=== PATIENT | male | born 1970 | race Caucasian/White ===

== ENCOUNTER 2017-06-29 02:47 | Emergency (ER) | payer MEDICAID ==
[~2017-06-29] VITALS: Ht 154.9 cm; Wt 75.0 kg
[~2017-06-29 02:47] MED LIST: ALBUTEROL
[2017-06-29] MEDS ORDERED: METHYLPREDNISOLONE SOD SUCC 125 MG/2 ML VIAL IV STA (03:15)
[2017-06-29] MEDS ORDERED: IPRATROPIUM/ALBUTEROL 0.5-3(2.5)MG/3ML NEB HHN ONE (03:15)
[2017-06-29] MEDS ORDERED: MAGNESIUM 2 G PREMIX 50 ML IV ONE (03:15)
[2017-06-29 05:46] VITALS: BP 118/67
== END 2017-06-29 05:53 | disposition home or self-care (01) ==
LOC: ER 02:47
DX: J45.901 Unspecified asthma with (acute) exacerbation (principal)
CPT/HCPCS: 71010; 94640; 96365; 96375; 99284; J2930; J3475; Z7610; J7620

== ENCOUNTER 2017-08-07 07:46 | Emergency (ER) | payer MEDICAID ==
[~2017-08-07] VITALS: Ht 154.9 cm; Wt 73.0 kg
[2017-08-07] MEDS ORDERED: IPRATROPIUM BROMIDE (0.02%) 0.5MG/2.5ML NEB HHN STA (08:10)
[2017-08-07] MEDS ORDERED: PREDNISONE 20MG TABLET PO STA (08:10)
[2017-08-07] MEDS ORDERED: ALBUTEROL (0.083%) 2.5MG/3ML NEB HHN STA (08:10)
[2017-08-07 09:36] VITALS: BP 104/69
== END 2017-08-07 09:40 | disposition home or self-care (01) ==
LOC: ER 07:57
DX: J45.901 Unspecified asthma with (acute) exacerbation (principal); F17.200 Nicotine dependence, unspecified, uncomplicated
CPT/HCPCS: 94640; 99283; J7512; J7611; Z7610

== ENCOUNTER 2017-09-02 03:42 | Emergency (ER) | payer MEDICAID ==
[~2017-09-02] VITALS: Ht 154.9 cm; Wt 73.0 kg
[2017-09-02] MEDS ORDERED: ALBUTEROL (0.5%) 2.5MG/0.5ML NEB HHN ONE (06:30)
[2017-09-02] MEDS ORDERED: METHYLPREDNISOLONE SOD SUCC 125 MG/2 ML VIAL IV ONE (06:30)
[2017-09-02] MEDS ORDERED: ALBUTEROL (0.083%) 2.5MG/3ML NEB ONE (06:47)
[2017-09-02 07:15] VITALS: BP 104/68
== END 2017-09-02 08:32 | disposition home or self-care (01) ==
LOC: ER 03:42
DX: J45.901 Unspecified asthma with (acute) exacerbation (principal); Z98.890 Other specified postprocedural states
CPT/HCPCS: 71010; 94664; 96374; 99284; J2930; J7611

== ENCOUNTER 2017-10-02 00:46 | Emergency (ER) | payer MEDICAID ==
[~2017-10-02] VITALS: Ht 154.9 cm; Wt 76.0 kg
[2017-10-02] MEDS ORDERED: IPRATROPIUM/ALBUTEROL 0.5-3(2.5)MG/3ML NEB HHN ONE (03:00)
[2017-10-02] MEDS ORDERED: PREDNISONE 20MG TABLET PO ONE (03:00)
[2017-10-02 04:35] VITALS: BP 97/58
== END 2017-10-02 05:17 | disposition home or self-care (01) ==
LOC: ER 02:39
DX: J45.909 Unspecified asthma, uncomplicated (principal)
CPT/HCPCS: 94640; 99283; J7512; J7620; Z7610

== ENCOUNTER 2017-12-27 08:24 | Emergency (ER) | payer MEDICAID ==
[~2017-12-27] VITALS: Ht 154.9 cm; Wt 74.0 kg
[2017-12-27] MEDS ORDERED: ALBUTEROL (0.083%) 2.5MG/3ML NEB HHN ONE ×2 (09:30→11:00)
[2017-12-27] MEDS ORDERED: DEXAMETHASONE 10 MG/ML VIAL IM ONE (09:30)
[2017-12-27] MEDS ORDERED: IPRATROPIUM BROMIDE (0.02%) 0.5MG/2.5ML NEB HHN ONE (11:00)
[2017-12-27 11:24] VITALS: BP 104/71
== END 2017-12-27 11:46 | disposition home or self-care (01) ==
LOC: ER 08:48
DX: J45.901 Unspecified asthma with (acute) exacerbation (principal)
CPT/HCPCS: 71046; 94640; 96372; 99284; J1100; J7611; Z7610; 81025

== ENCOUNTER 2018-01-17 14:09 | Emergency (ER) | payer MEDICAID ==
[~2018-01-17] VITALS: Ht 154.9 cm; Wt 75.0 kg
[2018-01-17] MEDS ORDERED: IPRATROPIUM/ALBUTEROL 0.5-3(2.5)MG/3ML NEB HHN ONE (14:30)
[2018-01-17] MEDS ORDERED: METHYLPREDNISOLONE SOD SUCC 125 MG/2 ML VIAL IV ONE (14:30)
[2018-01-17] MEDS ORDERED: MAGNESIUM 2 G PREMIX 50 ML IV ONE (15:30)
[2018-01-17] MEDS ORDERED: LEVOFLOXACIN 500MG TABLET PO ONE (15:30)
[2018-01-17 19:35] VITALS: BP 109/61
== END 2018-01-17 20:00 | disposition home or self-care (01) ==
LOC: ER 15:27
DX: J45.901 Unspecified asthma with (acute) exacerbation (principal)
CPT/HCPCS: 71045; 94640; 96365; 96366; 96375; 99285; J2930; J3475; J7620; Z7610

== ENCOUNTER 2018-09-21 23:01 | Emergency (ER) | payer MEDICAID ==
[~2018-09-21] VITALS: Ht 154.9 cm; Wt 66.7 kg
[2018-09-22] MEDS ORDERED: METHYLPREDNISOLONE SOD SUCC 125 MG/2 ML VIAL IM STA (00:08)
[2018-09-22] MEDS ORDERED: IPRATROPIUM BROMIDE (0.02%) 0.5MG/2.5ML NEB HHN STA (00:08)
[2018-09-22] MEDS ORDERED: ALBUTEROL (0.083%) 2.5MG/3ML NEB HHN STA (00:08)
[2018-09-22] MEDS ORDERED: ACETAMINOPHEN 500MG TABLET PO ONE (00:30)
[2018-09-22 01:59] VITALS: BP 122/87
== END 2018-09-22 02:00 | disposition home or self-care (01) ==
LOC: ER 23:01
DX: J45.901 Unspecified asthma with (acute) exacerbation (principal)
CPT/HCPCS: 71045; 94640; 96372; 99283; J2930; J7611

== ENCOUNTER 2019-06-04 18:33 | Emergency (ER) | payer MEDICAID ==
[~2019-06-04] VITALS: Ht 154.9 cm; Wt 74.0 kg
[2019-06-04] MEDS ORDERED: ALBUTEROL (0.083%) 2.5MG/3ML NEB HHN STA (18:57)
[2019-06-04] MEDS ORDERED: PREDNISONE 20MG TABLET PO STA (18:57)
[2019-06-04 21:05] VITALS: BP 110/64
== END 2019-06-04 21:17 | disposition home or self-care (01) ==
LOC: ER 18:33
DX: J45.901 Unspecified asthma with (acute) exacerbation (principal)
CPT/HCPCS: 71045; 94640; 99283; J7512; J7611; Z7610

== ENCOUNTER 2019-09-06 07:13 | Emergency (ER) | payer MEDICAID ==
[~2019-09-06] VITALS: Ht 154.9 cm; Wt 67.0 kg
[2019-09-06] MEDS ORDERED: ALBUTEROL (0.083%) 2.5MG/3ML NEB HHN STA (08:10)
[2019-09-06] MEDS ORDERED: IPRATROPIUM BROMIDE (0.02%) 0.5MG/2.5ML NEB HHN STA (08:10)
[2019-09-06] MEDS ORDERED: METHYLPREDNISOLONE SOD SUCC 125 MG/2 ML VIAL IM ONE (08:15)
[2019-09-06 09:13] VITALS: BP 110/78
== END 2019-09-06 09:49 | disposition home or self-care (01) ==
LOC: ER 07:22
DX: J45.901 Unspecified asthma with (acute) exacerbation (principal); Z79.899 Other long term (current) drug therapy
CPT/HCPCS: 71045; 94640; 96372; 99283; J2930; J7611; Z7610

== ENCOUNTER 2019-09-29 03:30 | Emergency (ER) | payer MEDICAID ==
[~2019-09-29] VITALS: Ht 154.9 cm; Wt 57.0 kg
[2019-09-29] MEDS ORDERED: ALBUTEROL (0.083%) 2.5MG/3ML NEB HHN STA (04:09)
[2019-09-29] MEDS ORDERED: IPRATROPIUM BROMIDE (0.02%) 0.5MG/2.5ML NEB HHN STA (04:09)
[2019-09-29] MEDS ORDERED: METHYLPREDNISOLONE SOD SUCC 125 MG/2 ML VIAL IV STA (04:09)
[2019-09-29] MEDS ORDERED: SODIUM CHLORIDE 0.9% 1000ML BAG (SEPSIS BOLUS) IV ONE (04:15)
[2019-09-29 05:03] LABS: BASOPHILS % 0.3 % (0.0-2.0); EOSINOPHILS % 3.6 % (0.0-5.0); HEMATOCRIT. 39.9 % (42.0-52.0); HEMOGLOBIN. 13.6 g/dL (14.0-18.0); LYMPHOCYTES % 9.3 % (20.0-50.0); MEAN CORPUSCULAR HEMOGLOBIN 29.8 pg (28.0-32.0); MEAN CORPUSCULAR VOLUME 87.4 fL (80.0-94.0); MEAN PLATELET VOLUME 8.7 fl (7.4-10.4); MONOCYTES % 9.5 % (2.0-8.0); NEUTROPHILS % 77.3 % (40.0-76.0); PLATELET 213 x1000/uL (130-400); RED BLOOD CELL COUNT 4.56 mill/uL (4.7-6.1); RED CELL DISTRIBUTION WIDTH 13.1 % (11.6-14.6)
[2019-09-29 05:12] LABS: CHLORIDE 107 mEq/L (98-107)
[2019-09-29 05:13] LABS: PROTHROMBIN TIME 10.3 sec (9.6-11.0)
[2019-09-29 06:21] LABS: CLARITY URINE CLEAR (CLEAR); COLOR URINE YELLOW (YELLOW); KETONES URINE 2+ (NEGATIVE); LEUKOCYTE ESTERASE URINE NEGATIVE (NEGATIVE); NITRITE URINE NEGATIVE (NEGATIVE); OCCULT BLOOD URINE NEGATIVE (NEGATIVE); PH URINE 6.5 (4.5-8.0); PROTEIN URINE NEGATIVE (NEGATIVE); SPECIFIC GRAVITY URINE 1.023 (1.005-1.030); UROBILINOGEN URINE 0.2 E.U./dL (0.2-1.0)
[2019-09-29] MEDS ORDERED: OSELTAMIVIR 75MG CAPSULE PO ONE (07:00)
[2019-09-29 08:14] VITALS: BP 93/47
== END 2019-09-29 08:18 | disposition home or self-care (01) ==
LOC: ER 03:30
DX: J45.901 Unspecified asthma with (acute) exacerbation (principal); J10.1 Influenza due to other identified influenza virus with other respiratory manifestations; R06.82 Tachypnea, not elsewhere classified
CPT/HCPCS: 36415; 71045; 80053; 81003; 83605; 84145; 84484; 85025; 85610; 87040; 87070; 87086; 87430; 87804; 93005; 94644; 96374; 99285; J2930; J7611; Z7610; J7030

== ENCOUNTER 2019-09-30 08:37 | Emergency (ER) | payer MEDICAID ==
[~2019-09-30] VITALS: Ht 154.9 cm; Wt 60.0 kg
[2019-09-30] MEDS ORDERED: IBUPROFEN 600MG TABLET PO STA (10:23)
[2019-09-30] MEDS ORDERED: IPRATROPIUM BROMIDE (0.02%) 0.5MG/2.5ML NEB HHN STA (10:23)
[2019-09-30] MEDS ORDERED: ALBUTEROL (0.083%) 2.5MG/3ML NEB HHN STA (10:23)
[2019-09-30 11:52] VITALS: BP 124/59
== END 2019-09-30 11:54 | disposition home or self-care (01) ==
LOC: ER 08:37
DX: R05 Cough (principal); J45.909 Unspecified asthma, uncomplicated; J11.1 Influenza due to unidentified influenza virus with other respiratory manifestations
CPT/HCPCS: 99283

== ENCOUNTER 2020-07-25 03:21 | Emergency (ER) | payer MEDICAID ==
[~2020-07-25] VITALS: Ht 154.9 cm; Wt 73.0 kg
[2020-07-25] MEDS ORDERED: PREDNISONE 20MG TABLET PO STA (03:36)
[2020-07-25] MEDS ORDERED: ALBUTEROL (0.083%) 2.5MG/3ML NEB HHN STA (03:36)
[2020-07-25] MEDS ORDERED: IPRATROPIUM BROMIDE (0.02%) 0.5MG/2.5ML NEB HHN STA (03:36)
[2020-07-25 05:50] VITALS: BP 142/76
== END 2020-07-25 05:51 | disposition home or self-care (01) ==
LOC: ER 03:21
DX: J45.901 Unspecified asthma with (acute) exacerbation (principal); Z98.890 Other specified postprocedural states
CPT/HCPCS: 71045; 93005; 94640; 99283; J7512; Z7610

== ENCOUNTER 2020-08-30 15:04 | Emergency (ER) | payer MEDICAID ==
[~2020-08-30] VITALS: Ht 154.9 cm; Wt 73.0 kg
[2020-08-30] MEDS ORDERED: IPRATROPIUM/ALBUTEROL 0.5-3(2.5)MG/3ML NEB HHN ONE (16:30)
[2020-08-30 18:34] VITALS: BP 127/80
== END 2020-08-30 18:35 | disposition home or self-care (01) ==
LOC: ER 15:04
DX: J45.901 Unspecified asthma with (acute) exacerbation (principal)
CPT/HCPCS: 71045; 93005; 94640; 99283; Z7610

== ENCOUNTER 2020-08-30 21:54 | Emergency (ER) | payer MEDICAID ==
[~2020-08-30] VITALS: Ht 154.9 cm; Wt 73.0 kg
[2020-08-30 22:11] VITALS: BP 144/87
[2020-08-31] MEDS ORDERED: PREDNISONE 20MG TABLET PO STA (02:09)
[2020-08-31] MEDS ORDERED: IPRATROPIUM BROMIDE (0.02%) 0.5MG/2.5ML NEB HHN STA (02:09)
[2020-08-31] MEDS ORDERED: ALBUTEROL (0.083%) 2.5MG/3ML NEB HHN STA (02:09)
== END 2020-08-31 04:57 | disposition home or self-care (01) ==
LOC: ER 21:54
DX: J45.901 Unspecified asthma with (acute) exacerbation (principal); Z98.890 Other specified postprocedural states
CPT/HCPCS: 94644; 99285; J7512; Z7610

== ENCOUNTER 2023-11-12 21:59 | Emergency (ER) | payer MEDICAID ==
[~2023-11-12] VITALS: Ht 157.5 cm; Wt 63.0 kg
[2023-11-12] MEDS: PREDNISONE 20MG TABLET PO STA (23:06)
[2023-11-12 23:49] VITALS: PULSE 79; RESP 18; O2SAT 95
[2023-11-12] MEDS: IPRATROPIUM BROMIDE (0.02%) 0.5MG/2.5ML NEB HHN STA (23:50)
[2023-11-12] MEDS: ALBUTEROL (0.083%) 2.5MG/3ML NEB HHN STA (23:50)
[2023-11-13] MEDS ORDERED: ALBU4TAB6 MT (00:49)
[2023-11-13] MEDS ORDERED: P20 MT (00:49)
[2023-11-13 01:20] VITALS: BP 131/72; PULSE 82; RESP 20; TEMP 97.7
== END 2023-11-13 01:45 | disposition home or self-care (01) ==
LOC: ER 21:59
DX: J45.901 Unspecified asthma with (acute) exacerbation (principal); Z98.890 Other specified postprocedural states
CPT/HCPCS: 94644; 99285; Z7610 ×4; J7512